=== PATIENT | male | born 2000 | race Caucasian/White ===

== ENCOUNTER 2025-02-03 08:24 | Outpatient (AMB) | payer SELFPAY ==
--- NOTE | 2025-02-03 08:26 | MHC.OFFWIV ---
Intake Vital Signs 02/03/25 08:27 Height 5 ft 10.5 in Weight 203 lb BMI 28.7 BP 142/90 H Blood Pressure Location Rt brachial Position Sitting Respiration 16 Pulse 91 Pulse Source Pulse Oximeter Temp 99.0 F Temp Source Oral Pulse Oximetry (%) 99 Oxygen Delivery Method Room Air Intake Visit Reasons: [employer] infection on lt cheek Intake Note: Pt is here today c/o Lt side of cheek ? infection x2day Patient Tobacco Use Status: Current someday Tobacco user Allergies No Known Allergies Allergy (Unverified 02/03/25 08:27) HPI HPI Comments History of Present Illness Details History of Present Illness - The patient is a 24-year-old male presenting with facial swelling and an abscess on his left cheek following the manipulation of a pimple. - The issue began a couple of days ago when the patient popped a pimple on his face, leading to significant swelling in the cheek and eye area. - The swelling has persisted, with minimal drainage from the site. - The patient applied hydrogen peroxide several times since it occurred. - No fever or systemic symptoms reported. Physical Exam General: Cooperative, healthy appearing, comfortable, no acute distress and well developed Orientation: Patient oriented x3 Limitations: No limitations Head: Normal to inspection Ears: Hearing grossly normal bilaterally Nose: Normal External nose present Face and sinus: right cheek has 2cm round area of induration with central scab, no drainage, no warmth Eyes: Appearance normal, both eyes and all related structures Neck: Normal visual inspection and Yes full ROM Respiratory: Normal respiratory effort and able to speak in complete sentences. Skin: No rashes or lesions noted Neuro: Patient oriented x3 Extremities: Normal to inspection [facility] Social History Patient Tobacco Use Status: Current someday Tobacco user Review of Systems Const All systems reviewed & are unremarkable except as noted in HPI and below Physical Exam Vital Signs: Last Vital Signs Temp 99.0 F 02/03/25 08:27 Pulse 91 02/03/25 08:27 Resp 16 02/03/25 08:27 BP 142/90 H 02/03/25 08:27 Pulse Ox 99 02/03/25 08:27 Oxygen Delivery Method Room Air 02/03/25 08:27 BMI result Body Mass Index 28.7 Assessment & Plan Assessment & Plan (1) Abscess: Code(s): L02.91 - Cutaneous abscess, unspecified Plan: Plan - Initiate treatment with two antibiotics: Keflex for broad coverage and doxycycline for potential MRSA coverage. - Advise the patient to avoid sun exposure while taking doxycycline due to photosensitivity risk. - Instruct the patient to avoid dairy products when taking doxycycline to ensure proper absorption. - Recommend taking doxycycline twice daily and Keflex every six hours. - Advise the patient to monitor for improvement and report back if symptoms do not resolve. - Stop using hydrogen peroxide, instead use Aquaphor healing ointment or nothing, keep the area clean and dry. Patient was informed and verbally consented to the use of an ambient scribe for clinic note documentation during this visit. Medications: New cephalexin 500 mg PO Q6H 28 caps 0RF doxycycline hyclate 100 mg PO BID 14 tabs 0RF Coding Level of Care Code New Pt Level 3 (99786) Diagnoses Abscess L02.91
[2025-02-03 08:27] VITALS: BP 142/90; PULSE 91; RESP 16; TEMP 37.2; O2SAT 99; BMI 28.7
== END 2025-02-03 09:17 | disposition home or self-care (01) ==
PROVIDERS: PCP Pediatrics; Visit Provider Physician Assistant
DX: L02.91 Cutaneous abscess, unspecified (principal)

== ENCOUNTER → 2025-02-03 08:24 | Outpatient (BNVA) | payer SELFPAY | PROVIDERS: PCP Pediatrics; Visit Provider Physician Assistant | DX: L02.01 Cutaneous abscess of face (principal) | CPT/HCPCS: 99202 ==